=== PATIENT | male | born 1960 | race Caucasian/White ===

== ENCOUNTER 2021-05-29 16:16 | Emergency (ER) | payer MEDICARE ==
[~2021-05-29] VITALS: Ht 177.8 cm; Wt 111.4 kg
[~2021-05-29 16:16] MED LIST: ATOR20TA66 PO; CLOP75TA34 PO; LISI2.5T14 PO; LOP25T PO; MULT-1179 PO
[2021-05-29] MEDS ORDERED: LEVO500T89 PO (17:24)
[2021-05-29] MEDS ORDERED: ALBU6.7H9 INH (17:24)
[2021-05-29] MEDS ORDERED: PRED20TA PO (17:24)
[2021-05-29] MEDS ORDERED: CASIRIVIMAB/IMDEVIMAB inject. 10 ML in normal saline 100ml IV soln 100 ML IV ONE (17:30)
[2021-05-29 19:00] VITALS: BP 134/71
== END 2021-05-29 19:03 | disposition home or self-care (01) ==
LOC: ER 16:17
DX: U07.1 COVID-19 (principal); J32.9 Chronic sinusitis, unspecified; R50.9 Fever, unspecified; R05.9 Cough, unspecified; Z98.890 Other specified postprocedural states; Z79.2 Long term (current) use of antibiotics; Z79.899 Other long term (current) drug therapy
CPT/HCPCS: 99284; M0243; Q0244